=== PATIENT | male | born 1980 | race Caucasian/White ===

== ENCOUNTER 2021-09-05 11:00 | Outpatient (REF) | payer BC, SELFPAY ==
[2021-09-05 13:09] LABS: Blood Urea Nitrogen 18 mg/dL (9-16); Estimated Glomerular Filt Rate > 60
== END 2021-09-05 11:01 | disposition home or self-care (01) ==
LOC: HO.LAB 11:00
PROVIDERS: Visit Provider Psychiatry & Neurology Neurology
DX: I77.74 Dissection of vertebral artery (principal)
CPT/HCPCS: 36415; 82565; 84520

== ENCOUNTER 2021-09-08 09:20 | Outpatient (REF) | payer BC, SELFPAY ==
--- NOTE | ~2021-09-08 | CT_ITS ---
EXAMINATION: CT ANGIOGRAM NECK WITH CONTRAST CLINICAL INFORMATION: Dissection of vertebral artery. COMPARISON: None. TECHNIQUE: Test bolus sequences followed by intravenous administration 70 mL of Omnipaque 350. Helical imaging was performed in the axial plane from the thoracic inlet to the skull base. The data was processed at the electroneurodiagnostic technologist workstation for generation of MIP sequences. Angled MIPs and volume rendered reformatted images were also generated at an offline 3D workstation. Stenoses are assessed in accordance with NASCET criteria unless otherwise indicated. This CT examination was performed using dose optimization techniques as appropriate, variously including the following: *Automated exposure control *Adjustment of mA and/or kV according to patient size (this includes techniques or standardized protocols for targeted exams where dose is matched to indication/reason for exam; i.e. extremities or head) *Use of iterative reconstruction technique DLP: 483 mGy-cm FINDINGS: NECK CTA: There is a three-vessel left-sided aortic arch with no significant stenosis of the great vessel origins. The common and internal carotid arteries are normal in course and caliber. Both vertebral arteries are widely patent throughout their extracranial cervical course. No dissection is seen. PARTIALLY IMAGED HEAD CTA: The imaged intracranial arteries appear patent. There is infundibular origin of the left ophthalmic artery. The imaged portions of the dural venous sinuses are patent. No acute intracranial abnormality is seen. There is moderate mucosal thickening in the left ethmoid air cells and left sphenoid sinus. Additional milder paranasal sinus mucosal thickening is also noted. The left middle ear is completely opacified but without discrete destructive change. There is partial opacification of both mastoids. NON-VASCULAR FINDINGS: The cervical spine is intact without significant degenerative change. The upper lungs are clear. CT/CT angio neck IMPRESSION: No abnormality seen within the major neck arteries. No evidence of vertebral artery dissection. Partially visualized moderate paranasal sinus mucosal thickening. Left middle ear is completely opacified. Small amount of fluid seen in both mastoids.
[2021-09-08] MEDS: iohexoL 350 MG/ML 100 ML INFUS..BTL IV (10:12)
== END 2021-09-08 09:21 | disposition home or self-care (01) ==
LOC: HO.CT 09:20
PROVIDERS: Visit Provider Psychiatry & Neurology Neurology
DX: I77.74 Dissection of vertebral artery (principal)
CPT/HCPCS: 70498; Q9967